=== PATIENT | male | born 1990 | race African-American/Black ===

== ENCOUNTER → 2021-07-03 | Outpatient (CLI) | payer OTHER ==
--- NOTE | 2021-07-03 09:52 | RAD ---
EXAM: Head CT without contrast. HISTORY: Head injury. TECHNIQUE: Computed tomographic images of the head were obtained without contrast. *One or more of the following individualized dose reduction techniques were utilized for this examina tion: 1. Automated exposure control. 2. Adjustment of the mA and/or kV according to patient size. 3. Use of iterative reconstruction technique. COMPARISON: None. FINDINGS: There is no acute or subacute extra-axial or intraparenchymal hemorrhage. There is no mass effect or midline shift. There is no hydrocephalus. The montgomery-white matter differentiation pattern is intact. The visualized portions of the orbits, paranasal sinuses and mastoid air cells are unremarkable. No s uspicious calvarial lesion is seen. IMPRESSION: No acute intracranial findings. Electronically signed by: Sol Schrader MD (07/03/2021 9:50 AM) [facility]
== END ==
LOC: CT 09:08
PROVIDERS: ATTEND Preventive Medicine Occupational Medicine
DX: S00.4 Superficial injury of ear (principal); X58.XXXS Exposure to other specified factors, sequela
CPT/HCPCS: 70450